=== PATIENT | male | born 1960 | race Caucasian/White ===

== ENCOUNTER → 2017-07-23 | Outpatient (CLI) | payer BC ==
[~2017-07-23] MED LIST: ASPI-496 PO; ATOR20TA9 PO; CHLORPHENIRAMINE PO; LEVO5DRO EACHEYE; OMEG-110 PO; TRAV5DRO EACHEYE
== END | disposition home or self-care (01) ==
LOC: STAR 08:06
PROVIDERS: ATTEND Orthopaedic Surgery
DX: Z02.9 Encounter for administrative examinations, unspecified (principal)

== ENCOUNTER 2017-07-27 08:54 | Day surgery (SDC) | payer BC ==
[~2017-07-27] VITALS: Ht 167.6 cm; Wt 81.6 kg
[2017-07-27] MEDS ORDERED: LACTATED RINGERS 1,000 ML IV SCH (09:14)
[2017-07-27 09:33] VITALS: BP 151/95
[2017-07-27] MEDS ORDERED: TRAV5DRO EACHEYE (09:33)
[2017-07-27] MEDS ORDERED: OMEP-110 PO (09:33)
[2017-07-27] MEDS ORDERED: MIDAZOLAM 1 MG/ML, 2ML ONE (10:32)
[2017-07-27] MEDS ORDERED: FENTANYL PF 100 MCG/2ML ONE (10:32)
[2017-07-27] MEDS ORDERED: BUPIVACAINE/PF 0.25% ONE (10:34)
[2017-07-27] MEDS ORDERED: ROPIvacaine/PF 0.5%, 30 ML ONE (10:34)
[2017-07-27] MEDS ORDERED: GLYCOPYRROLATE 0.2MG/1ML ONE (11:45)
[2017-07-27] MEDS ORDERED: DEXAMETHASONE 4 MG/ML, 1ML ONE (11:45)
[2017-07-27] MEDS ORDERED: NEOSTIGMINE 1 MG/ML, 10ML ONE (11:45)
[2017-07-27] MEDS ORDERED: ROCURONIUM 10 MG/ML ONE (11:45)
[2017-07-27] MEDS ORDERED: CEFAZOLIN 1,000 MG ONE (11:45)
[2017-07-27] MEDS ORDERED: ONDANSETRON 2MG/ML, 2ML ONE (11:45)
[2017-07-27] MEDS ORDERED: PROPOFOL 10 MG/ML, 20ML ONE (11:45)
[2017-07-27] MEDS ORDERED: ALBUTEROL SULFATE 2.5 MG/3 ML NPPB PRN (12:30)
[2017-07-27] MEDS ORDERED: LABETALOL 5MG/ML, 20ML IV PRN (12:30)
[2017-07-27] MEDS ORDERED: OXYcodone 5 MG/5 ML ORAL.SOL UDC PO PRN (12:30)
[2017-07-27] MEDS ORDERED: FENTANYL PF 100 MCG/2ML IV PRN (12:30)
[2017-07-27] MEDS ORDERED: PROMETHAZINE 25 MG/ML, 1ML IV PRN (12:30)
[2017-07-27] MEDS ORDERED: hydrALAzine 20 MG/ML, 1ML IV PRN (12:30)
[2017-07-27] MEDS ORDERED: HYDROmorphone 1 MG/ML, 1ML IV PRN (12:30)
[2017-07-27] MEDS ORDERED: METOPROLOL 1 MG/ML, 5ML IV PRN (12:30)
[2017-07-27] MEDS ORDERED: ONDANSETRON 2MG/ML, 2ML IVPush PRN (12:30)
[2017-07-27] MEDS ORDERED: MEPERIDINE/PF 25MG/0.5ML IVPush PRN (12:30)
[2017-07-27] MEDS ORDERED: EPHEDRINE 50 MG/ML, 1ML IVPush PRN (12:30)
[2017-07-27] MEDS ORDERED: ACETAMINOPHEN 325 MG TABLET PO PRN (12:30)
[2017-07-27] MEDS ORDERED: OXYcodone 5 MG/5 ML ORAL.SOL UDC ONE (12:54)
[2017-07-27] MEDS ORDERED: ACETAMINOPHEN 650 MG/20.3 ML UDC ONE (12:54)
== END 2017-07-27 14:30 ==
LOC: OR 08:54
PROVIDERS: ATTEND Orthopaedic Surgery
DX: M76.62 Achilles tendinitis, left leg (principal); Z88.0 Allergy status to penicillin; Z88.8 Allergy status to other drugs, medicaments and biological substances
CPT/HCPCS: 27650; J0690; J1100; J2250; J2405; J2704; J2710; J2795; J3010; J3490; J7120

== ENCOUNTER 2018-01-20 11:13 | Observation (INO) | payer BC ==
[~2018-01-20] VITALS: Ht 167.6 cm; Wt 84.4 kg
[~2018-01-20 11:13] MED LIST changes: +OMEP-110 PO
[2018-01-20] MEDS ORDERED: SODIUM CHLORIDE FLUSH 10ML SYR IVF ONE (12:00)
[2018-01-20] MEDS ORDERED: ASPIRIN 81 MG TABLET CHEW PO ONE (12:00)
[2018-01-20] MEDS ORDERED: SODIUM CHLORIDE 0.9% 1,000ML IVBOLUS ONE (12:00)
[2018-01-20] MEDS ORDERED: ASPIRIN 81 MG TABLET CHEW ONE (12:16)
[2018-01-20 12:25] LABS: BASOPHILS # (AUTO) 0.04 x10^3/uL (0-0.1); BASOPHILS % (AUTO) 1 % (0-1); EOSINOPHILS # (AUTO) 0.19 x10^3/uL (0-0.4); EOSINOPHILS % (AUTO) 2 % (1-7); LYMPHOCYTES # (AUTO) 1.74 x10^3/uL (1-3.4); LYMPHOCYTES % (AUTO) 21 % (22-44); MD NO; MEAN CORPUSCULAR HEMOGLOBIN 30.3 pg (27.5-34.5); MEAN CORPUSCULAR HGB CONC 33.9 g/dL (33.2-36.2); MEAN CORPUSCULAR VOLUME 89.4 fL (81-97); MEAN PLATELET VOLUME 8.5 fL (7.4-10.4); MONOCYTES # (AUTO) 0.61 x10^3/uL (0.2-0.8); MONOCYTES % (AUTO) 7 % (2-9); NEUTROPHILS # (AUTO) 5.85 x10^3/uL (1.8-6.8); NEUTROPHILS % (AUTO) 69 % (42-75); PLATELET COUNT 247 x10^3/uL (130-400); RED BLOOD COUNT 5.81 x10^6/uL (4.38-5.82); RED CELL DISTRIBUTION WIDTH 13.4 % (9.4-14.8)
[2018-01-20 12:36] LABS: ALBUMIN 4.2 g/dL (3.4-5.0); ANION GAP 7 mmol/L (5-15); CALCIUM 9.1 mg/dL (8.5-10.1); CHLORIDE 104 mmol/L (98-107)
[2018-01-20 12:42] LABS: ALANINE AMINOTRANSFERASE 50 U/L (12-78); ALKALINE PHOSPHATASE 77 U/L (45-117); BILIRUBIN,TOTAL 0.8 mg/dL (0.2-1.0); CREATININE 1.34 mg/dL (0.7-1.3); TROPONIN I < 0.015 ng/mL (0.000-0.045)
[2018-01-20 14:25] VITALS: BP 139/90
[2018-01-20] MEDS ORDERED: SODIUM CHLORIDE 0.9% 1,000 ML IV SCH ×2 (14:30)
[2018-01-20] MEDS ORDERED: ENOXAPARIN 40 MG/0.4 ML SQ SCH (14:30)
[2018-01-20] MEDS ORDERED: OMEPRAZOLE 20 MG CAPSULE.DR ONE (17:10)
[2018-01-20 18:43] VITALS: BP 127/80
[2018-01-20] MEDS ORDERED: LATANOPROST OPHTH 0.005%, 2.5ML EACHEYE SCH (21:00)
[2018-01-20] MEDS ORDERED: TRAVOPROST OPHTH 0.004%, 2.5ML EACHEYE SCH (21:00)
[2018-01-20] MEDS ORDERED: ATORVASTATIN 20 MG TABLET PO SCH (21:00)
[2018-01-21 01:17] VITALS: BP 103/67
[2018-01-21 05:10] LABS: CHLORIDE 110 mmol/L (98-107)
[2018-01-21 05:19] LABS: BASOPHILS # (AUTO) 0.05 x10^3/uL (0-0.1); BASOPHILS % (AUTO) 1 % (0-1); EOSINOPHILS # (AUTO) 0.24 x10^3/uL (0-0.4); EOSINOPHILS % (AUTO) 3 % (1-7); LYMPHOCYTES # (AUTO) 1.92 x10^3/uL (1-3.4); LYMPHOCYTES % (AUTO) 24 % (22-44); MD NO; MEAN CORPUSCULAR HEMOGLOBIN 30.9 pg (27.5-34.5); MEAN CORPUSCULAR HGB CONC 34.5 g/dL (33.2-36.2); MEAN CORPUSCULAR VOLUME 89.4 fL (81-97); MEAN PLATELET VOLUME 8.3 fL (7.4-10.4); MONOCYTES # (AUTO) 0.65 x10^3/uL (0.2-0.8); MONOCYTES % (AUTO) 8 % (2-9); NEUTROPHILS # (AUTO) 5.35 x10^3/uL (1.8-6.8); NEUTROPHILS % (AUTO) 65 % (42-75); PLATELET COUNT 207 x10^3/uL (130-400); RED BLOOD COUNT 4.92 x10^6/uL (4.38-5.82); RED CELL DISTRIBUTION WIDTH 13.5 % (9.4-14.8)
[2018-01-21 05:20] LABS: ALANINE AMINOTRANSFERASE 37 U/L (12-78); ALBUMIN 3.2 g/dL (3.4-5.0); ALKALINE PHOSPHATASE 56 U/L (45-117); ANION GAP 7 mmol/L (5-15); BILIRUBIN,TOTAL 0.5 mg/dL (0.2-1.0); CREATININE 1.12 mg/dL (0.7-1.3); TOTAL PROTEIN 6.2 g/dL (6.4-8.2)
[2018-01-21 07:08] LABS: TROPONIN I < 0.015 ng/mL (0.000-0.045)
[2018-01-21 08:03] VITALS: BP 114/67
[2018-01-21] MEDS ORDERED: OMEPRAZOLE 20 MG CAPSULE.DR PO SCH (09:00)
[2018-01-21] MEDS ORDERED: ASPIRIN 81 MG TABLET EC PO SCH (09:00)
== END 2018-01-21 13:59 | disposition home or self-care (01) ==
LOC: ED 12:28 → EDIP 12:58 → 5SO 14:19
PROVIDERS: ADMIT Internal Medicine Pulmonary Disease; ATTEND Internal Medicine Pulmonary Disease
DX: R07.89 Other chest pain (principal); E78.5 Hyperlipidemia, unspecified; G21.9 Secondary parkinsonism, unspecified; N17.9 Acute kidney failure, unspecified; H40.9 Unspecified glaucoma; R09.1 Pleurisy
CPT/HCPCS: 36415; 71045; 78452; 80053; 83690; 83735; 84484; 85025; 93005; 93017; 93306; 96360; 99285; A9502; C9898; G0378; J7030; 96361